=== PATIENT | female | born 1990 | race African-American/Black ===

== ENCOUNTER 2024-01-21 11:30 | Emergency (ER) | payer SELFPAY ==
[~2024-01-21] VITALS: Ht 154.9 cm; Wt 68.0 kg
[2024-01-21 11:52] VITALS: O2SAT 97
[2024-01-21 13:13] LABS: EOSINOPHILS % 0.7 % (0.0-5.0); HEMATOCRIT. 39.2 % (36.0-48.0); HEMOGLOBIN. 13.3 g/dL (12.0-16.0); LYMPHOCYTES % 39.7 % (20.0-50.0); MEAN CORPUSCULAR HEMOGLOBIN 32.2 pg (28.0-32.0); MEAN CORPUSCULAR HGB CONC 34.1 g/dL (31.0-37.0); MEAN CORPUSCULAR VOLUME 94.7 fL (81.0-99.0); MEAN PLATELET VOLUME 7.7 fl (7.4-10.4); MONOCYTES % 7.1 % (2.0-8.0); NEUTROPHILS % 51.5 % (40.0-76.0); PLATELET 382 x1000/uL (130-400); RED BLOOD CELL COUNT 4.14 mill/uL (4.2-5.4); RED CELL DISTRIBUTION WIDTH 13.7 % (11.6-14.6); WHITE BLOOD COUNT 5.7 x1000/uL (4.5-11.0)
[2024-01-21 13:27] LABS: ALANINE AMINOTRANSFERASE 31 IU/L (10-49); ALBUMIN 4.7 g/dL (3.2-4.8); ASPARTATE AMINOTRANSFERASE 23 IU/L (<34); BILIRUBIN TOTAL 0.4 mg/dL (0.1-1.0); CALCIUM 9.1 mg/dL (8.7-10.4); CARBON DIOXIDE 26 mEq/L (21-32); CHLORIDE 108 mEq/L (98-107); CREATININE 0.7 mg/dL (0.6-1.0); GLUCOSE 77 mg/dL (70-105); POTASSIUM 3.8 mEq/L (3.5-5.1); PROTEIN TOTAL 8.7 g/dL (6.0-8.3); SODIUM 140 mEq/L (136-145); UREA NITROGEN BLOOD 8 mg/dL (9-23)
[2024-01-21 13:33] LABS: HCG SCREEN NEGATIVE
[2024-01-21] MEDS: SUMATRIPTAN SUCCINATE 25MG TABLET PO NR (13:51)
[2024-01-21] MEDS: SODIUM CHLORIDE 0.9% 1,000 ML IV NR (13:51)
[2024-01-21] MEDS: ACETAMINOPHEN 325MG TABLET PO NR (13:51)
[2024-01-21] MEDS: ONDANSETRON 4MG ODT PO ONE (13:51)
[2024-01-21 15:52] VITALS: TEMP 98.5
[2024-01-21 16:26] VITALS: BP 115/65; PULSE 75; RESP 18
== END 2024-01-21 16:27 | disposition home or self-care (01) ==
LOC: ER 11:52
DX: R51.9 Headache, unspecified (principal); Z88.6 Allergy status to analgesic agent
CPT/HCPCS: 99284; 96360; 70450; 80053; 81025; 84703; 85025; 36415; 93005; Q0162